=== PATIENT | male | born 1990 | race African-American/Black ===

== ENCOUNTER 2017-02-22 13:25 | Emergency (ER) | payer SELFPAY ==
[~2017-02-22] VITALS: Ht 185.4 cm; Wt 66.0 kg
[2017-02-22 14:46] LABS: CLARITY URINE CLEAR (CLEAR); COLOR URINE YELLOW (YELLOW); GLUCOSE URINE NEGATIVE (NEGATIVE); KETONES URINE NEGATIVE (NEGATIVE); LEUKOCYTE ESTERASE URINE NEGATIVE (NEGATIVE); NITRITE URINE NEGATIVE (NEGATIVE); OCCULT BLOOD URINE 2+ (NEGATIVE); PROTEIN URINE NEGATIVE (NEGATIVE); SPECIFIC GRAVITY URINE 1.026 (1.005-1.030)
[2017-02-22 15:51] VITALS: BP 126/72
== END 2017-02-22 15:52 | disposition home or self-care (01) ==
LOC: ER 14:02
DX: R31.9 Hematuria, unspecified (principal); F17.210 Nicotine dependence, cigarettes, uncomplicated; F12.10 Cannabis abuse, uncomplicated
CPT/HCPCS: 81001; 99283; Z7610